=== PATIENT | male | born 1980 | race Two or more races ===

== ENCOUNTER 2019-01-29 13:25 | Emergency (ER) | payer SELFPAY ==
--- NOTE | 2019-01-29 13:43 | EDM.PDOC ---
ED HPI GENERAL MEDICAL PROBLEM - General Chief Complaint: Upper Extremity Injury/Pain Stated Complaint: BRUISING ON ARM Time Seen by Provider: 01/29/19 13:43 Source of Information: Reports: Patient History Limitations: Reports: No Limitations - History of Present Illness INITIAL COMMENTS - FREE TEXT/NARRATIVE: HISTORY AND PHYSICAL: History of present illness: Patient is a 38-year-old male presents to the ED with concern of left arm bruising. Patient states 2 days he hit his right elbow. He developed swelling and bruising. He states the swelling has gone down but has bruising down his forearm. Denies fevers, chills, distal pain/numbness/tingling. Review of systems: As per history of present illness and below otherwise all systems reviewed and negative. Past medical history: As per history of present illness and as reviewed below otherwise noncontributory. Surgical history: As per history of present illness and as reviewed below otherwise noncontributory. Social history: No reported history of drug or alcohol abuse. Family history: As per history of present illness and as reviewed below otherwise noncontributory. Physical exam: General: Patient sitting comfortably in no acute distress and nontoxic appearing HEENT: Atraumatic, normocephalic, pupils reactive, negative for conjunctival pallor or scleral icterus, mucous membranes moist, throat clear, neck supple, nontender, trachea midline. No meningeal signs. Lungs: Clear to auscultation, breath sounds equal bilaterally, chest nontender. Heart: S1S2, regular, negative for clicks, rubs, or overt murmur. Abdomen: Soft, nondistended, nontender. Negative for masses or hepatosplenomegaly. Negative for costovertebral tenderness. No rigidity, rebound , guarding. Pelvis: Stable nontender. Genitourinary: Deferred. Rectal: Deferred. Extremities: Ecchymosis to the left posterior elbow and the medial and anterior aspect of the left forearm. Atraumatic, negative for cords or calf pain. Neurovascular unremarkable. Neuro: Awake, alert, oriented. Cranial nerves II through XII unremarkable. Cerebellum unremarkable. Motor and sensory unremarkable throughout. Exam nonfocal. Notes: Diagnostics: [] Therapeutics: [] Prescriptions: Impression: [] Plan: [] Definitive disposition and diagnosis as appropriate pending reevaluation and review of above. L forearm Pain Score (Numeric/FACES): 6 - Related Data Allergies Allergy/AdvReac Type Severity Reaction Status Date / Time No Known Allergies Allergy Verified 01/29/19 13:41 Home Meds: Home Meds . [No Known Home Meds] 01/29/19 [History] Course - Vital Signs Last Recorded V/S: Last Vital Signs Temp 98.5 F 01/29/19 13:38 Pulse 110 H 01/29/19 13:38 Resp 18 01/29/19 13:38 BP 165/94 H 01/29/19 13:38 Pulse Ox 99 01/29/19 13:38 Departure - Departure Time of Disposition: 14:20 Disposition: Home, Self-Care 01 Condition: Good Clinical Impression: Injury of left elbow - Discharge Information Referrals: PCP,None [Primary Care Provider] - Forms: ED Department Discharge Additional Instructions: The following information is given to patients seen in the emergency department who are being discharged to home. This information is to outline your options for follow-up care. We provide all patients seen in our emergency department with a follow-up referral. The need for follow-up, as well as the timing and circumstances, are variable depending upon the specifics of your emergency department visit. If you don't have a primary care physician on staff, we will provide you with a referral. We always advise you to contact your personal physician following an emergency department visit to inform them of the circumstance of the visit and for follow-up with them and/or the need for any referrals to a consulting specialist. The emergency department will also refer you to a specialist when appropriate. This referral assures that you have the opportunity for follow-up care with a specialist. All of these measure are taken in an effort to provide you with optimal care, which includes your follow-up. Under all circumstances we always encourage you to contact your private physician who remains a resource for coordinating your care. When calling for follow-up care, please make the office aware that this follow-up is from your recent emergency room visit. If for any reason you are refused follow-up, please contact the [facility] Emergency Department at and asked to speak to the emergency department charge nurse. [facility] [address] [place] [id number] [facility] [address] [place] [address] Ice, elevate and motrin or tylenol as needed Follow up with primary care provider Return to ED as needed as discussed Sepsis Event Note - Evaluation Sepsis Screening Result: No Definite Risk - Focused Exam Vital Signs: Vital Signs Temp Pulse Resp BP Pulse Ox 01/29/19 13:38 98.5 F 110 H 18 165/94 H 99 Date Exam was Performed: 01/29/19 Time Exam was Performed: 14:20
--- NOTE | 2019-01-29 14:16 | CR ---
INDICATION: Injury. FINDINGS: Three views of the left elbow were obtained. There is no acute fracture seen or dislocation. There is no posterior fat pad sign seen. IMPRESSION: No acute bone abnormality. Dictated by Andrey Campbell MD @ 01/29/2019 2:14:51 PM Dictated by: Andrey Campbell MD @ 01/29/2019 14:14:58 (Electronically Signed)
== END 2019-01-29 14:30 | disposition home or self-care (01) ==
LOC: MW.ED 13:25
DX: S50.02XA Contusion of left elbow, initial encounter (principal); S50.12XA Contusion of left forearm, initial encounter; W22.8XXA Striking against or struck by other objects, initial encounter; Y99.0 Civilian activity done for income or pay
CPT/HCPCS: 73080-26-LT; 73080-LT; 99282; 99283-25

== ENCOUNTER 2019-05-17 11:39 | Emergency (ER) | payer SELFPAY ==
--- NOTE | 2019-05-17 12:08 | EDM.PDOCBH ---
ED [facility] GENERAL MEDICAL PROBLEM - General Chief Complaint: Behavioral/Psych Stated Complaint: PANIC ATTACK Time Seen by Provider: 05/17/19 12:06 Source of Information: Reports: Patient History Limitations: Reports: No Limitations - History of Present Illness INITIAL COMMENTS - FREE TEXT/NARRATIVE: Patient 39-year-old male past medical history of anxiety presenting with a chief complaint of panic attack. Patient states that the symptoms have been ongoing since yesterday. Symptoms worsened today while at work. Patient states he has a history of panic attacks in the past but does not have one for 2 years. Patient states he was prescribed Xanax in the past. Patient states that he had significant stressors in his life with his mother being diagnosed with cancer and having surgery yesterday. Patient denies any chest pain, shortness of breath, palpitations. Patient denies any drug or alcohol use. Patient is denying suicidal, homicidal ideations. Pmhx: Anxiety disorder Pshx: None Family Hx: noncontributory Smoking history? no Etoh use? none Drug use? none In addition to that documented in the HPI above, the additional ROS was obtained : Constitutional: Denies fevers or chills Eyes: Denies vision changes ENMT: Denies sore throat CV: Denies chest pain Resp: Denies SOB GI: Denies vomiting or diarrhea : Denies painful urination MSK: Denies recent trauma Skin: Denies new rashes Neuro: Denies new numbness or tingling or weakness Endocrine: Denies unexpected weight loss Heme: Denies bleeding disorders I have reviewed the triage vital signs Const: Well nourished, well developed, appears stated age Eyes: PERRL, no conjunctival injection HENT: NCAT, Neck supple without meningismus CV: RRR, Warm, well-perfused extremities RESP: Unlabored respiratory effort GI: soft, non-tender, non-distended, no masses MSK: No gross deformities appreciated Skin: Warm, dry. 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 Sensation and motor function of extremities grossly intact. Psych: Anxious in appearance with appropriate mood and affect Assessment and plan: Patient is 39-year-old male presenting with chief complaint of panic attack. Patient's vital signs do not demonstrate any significant abnormalities requiring intervention. Patient's EKG demonstrated normal sinus rhythm without ischemic changes. Patient has history of anxiety and does not take medications. There is no evidence of alcohol withdrawal, ACS. Signs and symptoms are more consistent with panic disorder. Patient given 1 dose of Valium in the emergency department. Patient instructed to follow-up as an outpatient for further management. Patient given return precautions. All questions addressed and answered. Patient agrees with plan. - Related Data Allergies Allergy/AdvReac Type Severity Reaction Status Date / Time No Known Allergies Allergy Verified 05/17/19 11:41 Home Meds: Home Meds . [No Known Home Meds] 01/29/19 [History] Past Medical History HEENT History: Reports: None Cardiovascular History: Reports: None Respiratory History: Reports: None Gastrointestinal History: Reports: None Genitourinary History: Reports: None Musculoskeletal History: Reports: None Neurological History: Reports: None Psychiatric History: Reports: None Endocrine/Metabolic History: Reports: None Hematologic History: Reports: None Immunologic History: Reports: None Oncologic (Cancer) History: Reports: None Dermatologic History: Reports: None - Infectious Disease History Infectious Disease History: Reports: None - Past Surgical History Head Surgeries/Procedures: Reports: None HEENT Surgical History: Reports: None Cardiovascular Surgical History: Reports: None Respiratory Surgical History: Reports: None GI Surgical History: Reports: Hernia, Abdominal Male Surgical History: Reports: None Endocrine Surgical History: Reports: None Neurological Surgical History: Reports: None Musculoskeletal Surgical History: Reports: None Oncologic Surgical History: Reports: None Dermatological Surgical History: Reports: None Social & Family History - Family History Family Medical History: Noncontributory - Tobacco Use Smoking Status *Q: Never Smoker Second Hand Smoke Exposure: No - Caffeine Use Caffeine Use: Reports: None - Recreational Drug Use Recreational Drug Use: No ED ROS GENERAL - Review of Systems Review Of Systems: See Below ED EXAM, BEHAVIORAL HEALTH - Physical Exam Exam: See Below COURSE, BEHAVIORAL HEALTH COMP - Course Vital Signs: Last Vital Signs Temp 36.5 C 05/17/19 12:35 Pulse 92 05/17/19 12:35 Resp 18 05/17/19 12:35 BP 131/87 05/17/19 12:35 Pulse Ox 100 05/17/19 12:35 Orders, Labs, Meds: Active Orders 24 hr Category Date Time Status EKG Documentation Completion [RC] STAT Care 05/17/19 12:04 Active Medications Discontinued Medications Generic Name Dose Route Start Last Admin Trade Name Freq PRN Reason Stop Dose Admin Diazepam 5 mg 04/11/20 12:18 05/17/19 12:34 Valium. PO 05/17/19 12:19 5 mg ONETIME ONE Administration Departure - Departure Time of Disposition: 12:42 Disposition: Home, Self-Care 01 Clinical Impression: Panic disorder - Discharge Information Instructions: Living With Anxiety Referrals: PCP,None [Primary Care Provider] - Forms: ED Department Discharge Additional Instructions: The following information is given to patients seen in the emergency department who are being discharged to home. This information is to outline your options for follow-up care. We provide all patients seen in our emergency department with a follow-up referral. The need for follow-up, as well as the timing and circumstances, are variable depending upon the specifics of your emergency department visit. If you don't have a primary care physician on staff, we will provide you with a referral. We always advise you to contact your personal physician following an emergency department visit to inform them of the circumstance of the visit and for follow-up with them and/or the need for any referrals to a consulting specialist. The emergency department will also refer you to a specialist when appropriate. This referral assures that you have the opportunity for follow-up care with a specialist. All of these measure are taken in an effort to provide you with optimal care, which includes your follow-up. Under all circumstances we always encourage you to contact your private physician who remains a resource for coordinating your care. When calling for follow-up care, please make the office aware that this follow-up is from your recent emergency room visit. If for any reason you are refused follow-up, please contact the [facility] Emergency Department at and asked to speak to the emergency department charge nurse. Sepsis Event Note - Evaluation Sepsis Screening Result: No Definite Risk - Focused Exam Vital Signs: Vital Signs Temp Pulse Resp BP Pulse Ox 05/17/19 12:35 36.5 C 92 18 131/87 100 05/17/19 11:41 36.0 C L 96 18 154/100 H 98 Date Exam was Performed: 05/17/19 Time Exam was Performed: 12:42 - My Orders Last 24 Hours: My Active Orders 05/17/19 12:04 EKG Documentation Completion [RC] STAT - Assessment/Plan Last 24 Hours: My Active Orders 05/17/19 12:04 EKG Documentation Completion [RC] STAT
[2019-05-17] MEDS: Diazepam 5 MG Tab PO ONE (12:34)
== END 2019-05-17 12:49 | disposition home or self-care (01) ==
LOC: MW.ED 11:39
DX: F41.0 Panic disorder [episodic paroxysmal anxiety] (principal)
CPT/HCPCS: 93005; 99283; A9270

== ENCOUNTER 2019-08-08 23:35 | Emergency (ER) | payer BC ==
[2019-08-08] MEDS ORDERED: Ondansetron 4 MG/2 ML SDV IVPUSH ONE (23:59)
[2019-08-08] MEDS ORDERED: Sodium Chloride 0.9% 10 ML Syringe FLUSH PRN (23:59)
[2019-08-08] MEDS ORDERED: Sodium Chloride 0.9% 2.5 ML Syringe FLUSH PRN (23:59)
[2019-08-09] MEDS ORDERED: Metoclopramide 10 MG/2 ML SDV IVPUSH ONE (00:30)
[2019-08-09 00:35] LABS: BLOOD UREA NITROGEN,BUN 18 mg/dL (7.0-18.0); CARBON DIOXIDE,CO2 27.4 mmol/L (21.0-32.0); CHLORIDE,CL 102 mmol/L (98-107); GLUCOSE RANDOM 111 mg/dL (74-106); LIPASE 112 U/L (73-393); POTASSIUM,K 3.8 mmol/L (3.5-5.1); SODIUM,NA 140 mmol/L (136-148)
--- NOTE | 2019-08-09 00:51 | EDM.PDOC ---
ED HPI GENERAL MEDICAL PROBLEM - General Chief Complaint: Gastrointestinal Problem Stated Complaint: VOMITTING,NAUSEA Time Seen by Provider: 08/08/19 23:36 Source of Information: Reports: Patient, Old Records History Limitations: Reports: No Limitations - History of Present Illness INITIAL COMMENTS - FREE TEXT/NARRATIVE: 39-year-old male with no pertinent past medical history presenting with nausea and vomiting. Around 8:30 PM, the patient began experiencing abdominal cramping, nausea, and nonbloody emesis x5 after eating fish that he was concerned was undercooked. No report of any fever, hematemesis, diarrhea, or bloody stools. No one else at home is sick with GI symptoms. Denies any dysuria or urinary frequency. No self treatment prior to arrival, no other complaints. - Related Data Allergies Allergy/AdvReac Type Severity Reaction Status Date / Time No Known Allergies Allergy Verified 08/08/19 23:52 Home Meds: Home Meds LORazepam [Ativan] 0.5 mg PO ASDIRECTED PRN 08/08/19 [History] Past Medical History - Past Health History Medical/Surgical History: Denies Medical/Surgical History HEENT History: Reports: None Cardiovascular History: Reports: None Respiratory History: Reports: None Gastrointestinal History: Reports: None Genitourinary History: Reports: None Musculoskeletal History: Reports: None Neurological History: Reports: None Psychiatric History: Reports: Anxiety Endocrine/Metabolic History: Reports: None Hematologic History: Reports: None Immunologic History: Reports: None Oncologic (Cancer) History: Reports: None Dermatologic History: Reports: None - Infectious Disease History Infectious Disease History: Reports: None - Past Surgical History Head Surgeries/Procedures: Reports: None HEENT Surgical History: Reports: None Cardiovascular Surgical History: Reports: None Respiratory Surgical History: Reports: None GI Surgical History: Reports: Hernia, Abdominal Male Surgical History: Reports: None Endocrine Surgical History: Reports: None Neurological Surgical History: Reports: None Musculoskeletal Surgical History: Reports: None Oncologic Surgical History: Reports: None Dermatological Surgical History: Reports: None Social & Family History - Family History Family Medical History: Noncontributory - Tobacco Use Smoking Status *Q: Never Smoker Second Hand Smoke Exposure: No - Caffeine Use Caffeine Use: Reports: Coffee - Recreational Drug Use Recreational Drug Use: No ED ROS GENERAL - Review of Systems Review Of Systems: See Below Constitutional: Denies: Fever, Chills HEENT: Reports: No Symptoms Respiratory: Denies: Shortness of Breath Cardiovascular: Denies: Chest Pain Endocrine: Reports: No Symptoms GI/Abdominal: Reports: Abdominal Pain, Nausea, Vomiting. Denies: Black Stool, Bloody Stool, Diarrhea, Distension, Hematemesis, Hematochezia : Denies: Dysuria, Hematuria Musculoskeletal: Denies: Neck Pain, Back Pain Skin: Denies: Rash, Lesions Neurological: Denies: Headache ED EXAM, GI/ABD - Physical Exam Exam: See Below Text/Narrative:: Vital signs reviewed. Nursing notes reviewed. Constitutional: Awake, alert, actively vomiting. Head: Normocephalic, atraumatic. Eyes: EOMI, conjunctiva normal, no discharge, no scleral icterus. Ears, Nose, Throat: External ears and nose normal, moist oral mucosa. Cardiovascular: 2+ radial pulse, capillary refill less than 2 seconds. Pulmonary: normal work of breathing, no accessory muscle use. Abdomen/GI: Soft, nontender, nondistended, no guarding or rigidity, no masses. Musculoskeletal: No deformities. Integumentary: Appropriate color for ethnicity, warm, dry, no pallor or jaundice, no rash. Neurologic: Alert, answering questions appropriately, normal speech, no facial droop, moving all extremities well. Psychiatric: Appropriate mood and affect, normal thought process. Course - Vital Signs Text/Narrative:: Patient hemodynamically stable, afebrile, well-appearing, looks nontoxic. Differential diagnosis includes but is not limited to: Gastritis, viral gastroenteritis, appendicitis, bowel obstruction, ileus, intra-abdominal infection, acute cholecystitis, pancreatitis, peptic ulcer disease, biliary colic, kidney stone, UTI, pyelonephritis, etc. CBC shows mild anemia. Electrolytes look okay. Normal lipase, LFTs show mildly elevated AST. No chest pain or shortness of breath. Improved after IV Zofran and Reglan. Tolerating p.o. intake after these therapies. No longer having nausea, abdominal cramping totally resolved, no pain after being treated with medications. Given symptomatic improvement in total symptom resolution, did not feel that imaging studies were warranted at this point. Vitally stable. Well-appearing. Tolerating fluid intakes without difficulty. Low suspicion for intra-abdominal infection given that pain totally resolved, no fever, no focal tenderness. No GI bleeding. No urinary symptoms. No abdominal distention. Plan to discharge home with a prescription for Zofran, recommended plenty of p.o. fluids and primary care follow-up as needed. Plan: Patient is stable to discharge home with outpatient primary care follow- up. Strict emergency department return precautions were provided, patient indicated understanding. All questions were answered prior to departure. Discharged in good condition. Last Recorded V/S: Last Vital Signs Temp 36.7 C 08/08/19 23:50 Pulse 79 08/09/19 02:35 Resp 16 08/09/19 02:35 BP 126/80 08/09/19 02:35 Pulse Ox 97 08/09/19 02:35 - Orders/Labs/Meds Orders: Active Orders 24 hr Category Date Time Status Pulse Oximetry [RC] ASDIRECTED Care 08/08/19 23:59 Active Saline Lock Insert [OM.PC] Stat Oth 08/08/19 23:59 Ordered Labs: Laboratory Tests 08/09/19 08/09/19 Range/Units 00:10 00:10 WBC 7.86 (4.0-11.0) K/uL RBC 4.27 L (4.50-5.90) M/uL Hgb 12.9 L (13.0-17.0) g/dL Hct 37.5 L (38.0-50.0) % MCV 87.8 (80.0-98.0) fL MCH 30.2 (27.0-32.0) pg MCHC 34.4 (31.0-37.0) g/dL RDW Std Deviation 38.9 (28.0-62.0) fl RDW Coeff of Ramesh 12 (11.0-15.0) % Plt Count 231 (150-400) K/uL MPV 10.80 (7.40-12.00) fL Neut % (Auto) 57.7 (48.0-80.0) % Lymph % (Auto) 32.2 (16.0-40.0) % Nicollet % (Auto) 8.4 (0.0-15.0) % Eos % (Auto) 1.4 (0.0-7.0) % Baso % (Auto) 0.3 (0.0-1.5) % Neut # (Auto) 4.5 (1.4-5.7) K/uL Lymph # (Auto) 2.5 H (0.6-2.4) K/uL Nicollet # (Auto) 0.7 (0.0-0.8) K/uL Eos # (Auto) 0.1 (0.0-0.7) K/uL Baso # (Auto) 0.0 (0.0-0.1) K/uL Sodium 140 (136-148) mmol/L Potassium 3.8 (3.5-5.1) mmol/L Chloride 102 (98-107) mmol/L Carbon Dioxide 27.4 (21.0-32.0) mmol/L BUN 18 (7.0-18.0) mg/dL Creatinine 0.9 (0.8-1.3) mg/dL Est Cr Clr Drug Dosing 112.65 mL/min Estimated GFR (MDRD) > 60.0 ml/min Glucose 111 H (74-106) mg/dL Calcium 8.9 (8.5-10.1) mg/dL Total Bilirubin 0.7 (0.2-1.0) mg/dL AST 43 H (15-37) IU/L ALT 55 (14-63) IU/L Alkaline Phosphatase 53 (46-116) U/L Total Protein 7.6 (6.4-8.2) g/dL Albumin 4.2 (3.4-5.0) g/dL Globulin 3.4 (2.6-4.0) g/dL Albumin/Globulin Ratio 1.2 (0.9-1.6) Lipase 112 (73-393) U/L Meds: Medications Discontinued Medications Generic Name Dose Route Start Last Admin Trade Name Freq PRN Reason Stop Dose Admin Metoclopramide HCl 10 mg 08/09/19 00:30 08/09/19 00:34 Reglan IVPUSH 08/09/19 00:31 10 mg ONETIME ONE Administration Ondansetron HCl 4 mg 08/08/19 23:59 08/09/19 00:10 Zofran IVPUSH 08/09/19 00:00 4 mg ONETIME ONE Administration Sodium Chloride 10 ml 08/08/19 23:59 Saline Flush FLUSH ASDIRECTED PRN Keep Vein Open Sodium Chloride 2.5 ml 08/08/19 23:59 Saline Flush FLUSH ASDIRECTED PRN Keep Vein Open Departure - Departure Time of Disposition: 02:21 Disposition: Home, Self-Care 01 Condition: Good Clinical Impression: Nausea and vomiting Qualifiers: Vomiting type: unspecified Vomiting Intractability: non-intractable Qualified Code(s): R11.2 - Nausea with vomiting, unspecified - Discharge Information *PRESCRIPTION DRUG MONITORING PROGRAM REVIEWED*: Not Applicable *COPY OF PRESCRIPTION DRUG MONITORING REPORT IN PATIENT SHANNAN: Not Applicable Instructions: Nausea and Vomiting, Adult Referrals: [facility] - Family Practice [Provider Group] - 1 Week (As needed for follow-up of symptoms.) Forms: ED Department Discharge Additional Instructions: Thank you for choosing the [facility] emergency department in [place] for your medical needs today. It was a pleasure caring for you. You were seen in the emergency department for nausea, vomiting, and abdominal cramping. It is possible that your symptoms are due to undercooked food. I am glad you are feeling better after receiving some medications. Your blood work looks okay. We are going to prescribe some Zofran for nausea, take it as needed. Be sure you are drinking plenty of fluids. You should follow-up with a primary medical doctor in the next few days if you are not feeling much better. Please return the emergency department immediately if your symptoms worsen or if you feel worse. The following information is given to patients seen in the emergency department who are being discharged. This information is to outline your options for follow-up care. We provide all patients seen in our emergency department with a follow-up referral. The need for follow-up, as well as the timing and circumstances, are variable depending upon the specifics of your emergency department visit. If you don't have a primary care physician on staff, we will provide you with a referral. We always advise you to contact your personal physician following an emergency department visit to inform them of the circumstance of the visit and for follow-up with them and/or the need for any referrals to a consulting specialist. The emergency department will also refer you to a specialist when appropriate. This referral assures that you have the opportunity for follow-up care with a specialist. All of these measure are taken in an effort to provide you with optimal care, which includes your follow-up. Under all circumstances we always encourage you to contact your private physician who remains a resource for coordinating your care. When calling for follow-up care, please make the office aware that this follow-up is from your recent emergency room visit. If for any reason you are refused follow-up, please contact the Emergency Department at and asked to speak to the emergency department charge nurse. If you do not have a primary care physician that is caring for you, you can contact these clinics below to set up an appointment to establish care: [facility] - Primary Care [address] [place] [id number] [facility] [address] [place] [id number] Sepsis Event Note (ED) - Evaluation Sepsis Screening Result: No Definite Risk - Focused Exam Vital Signs: Vital Signs Temp Pulse Resp BP Pulse Ox 08/09/19 02:35 79 16 126/80 97 08/08/19 23:50 36.7 C 78 20 129/85 99 - My Orders Last 24 Hours: My Active Orders 08/08/19 23:59 Pulse Oximetry [RC] ASDIRECTED Saline Lock Insert [OM.PC] Stat - Assessment/Plan Last 24 Hours: My Active Orders 08/08/19 23:59 Pulse Oximetry [RC] ASDIRECTED Saline Lock Insert [OM.PC] Stat
== END 2019-08-09 02:34 | disposition home or self-care (01) ==
LOC: MW.ED 23:35
DX: R11.2 Nausea with vomiting, unspecified (principal)
CPT/HCPCS: 36415; 80053; 83690; 85025; 96374; 96375; 99284; J2405; J2765; 99283

== ENCOUNTER 2019-08-26 00:52 | Emergency (ER) | payer BC ==
[2019-08-26] MEDS ORDERED: Ondansetron 4 MG Tab PO ONE (01:53)
--- NOTE | 2019-08-26 01:56 | EDM.PDOC ---
ED HPI GENERAL MEDICAL PROBLEM - General Chief Complaint: Gastrointestinal Problem Stated Complaint: ANXIETY, NAUSEA, DIARRHEA Time Seen by Provider: 08/26/19 01:00 - History of Present Illness INITIAL COMMENTS - FREE TEXT/NARRATIVE: History of present illness: [] Patient presents with nausea vomiting and diarrhea that began after taking Zoloft he is prescribed Zoloft recently for anxiety and he states every time he takes it it makes his anxiety worse and he develops the nausea vomiting diarrhea he denies any abdominal pain no fever no chills nothing seems to make it better or worse. Talk to the prescribing physician about this. Review of systems: As per history of present illness and below otherwise all systems reviewed and negative. Past medical history: As per history of present illness and as reviewed below otherwise noncontributory. Surgical history: As per history of present illness and as reviewed below otherwise noncontributory. Social history: No reported history of drug or alcohol abuse. Family history: As per history of present illness and as reviewed below otherwise noncontributory. Physical exam: HEENT: Atraumatic, normocephalic, pupils reactive, negative for conjunctival pallor or scleral icterus, mucous membranes moist, throat clear, neck supple, nontender, trachea midline. Lungs: Clear to auscultation, breath sounds equal bilaterally, chest nontender. Heart: S1S2, regular, negative for clicks, rubs, or JVD. Abdomen: Soft, nondistended, nontender. Negative for masses or hepatosplenomegaly. Negative for costovertebral tenderness. Pelvis: Stable nontender. Genitourinary: Deferred. Rectal: Deferred. Extremities: Atraumatic, negative for cords or calf pain. Neurovascular unremarkable. Neuro: Awake, alert, oriented. Cranial nerves II through XII unremarkable. Cerebellum unremarkable. Motor and sensory unremarkable throughout. Exam nonfocal. Diagnostics: [] Therapeutics: [] Impression: Medication intolerance [] Plan: Zofran p.o. challenge reassess [] Definitive disposition and diagnosis as appropriate pending reevaluation and review of above. no pain Pain Score (Numeric/FACES): 0 - Related Data Allergies Allergy/AdvReac Type Severity Reaction Status Date / Time No Known Allergies Allergy Verified 08/08/19 23:52 Home Meds: Home Meds Sertraline [Zoloft] 0 mg 08/26/19 [History] Past Medical History - Past Health History Medical/Surgical History: Denies Medical/Surgical History HEENT History: Reports: None Cardiovascular History: Reports: None Respiratory History: Reports: None Gastrointestinal History: Reports: None Genitourinary History: Reports: None Musculoskeletal History: Reports: None Neurological History: Reports: None Psychiatric History: Reports: Anxiety Endocrine/Metabolic History: Reports: None Hematologic History: Reports: None Immunologic History: Reports: None Oncologic (Cancer) History: Reports: None Dermatologic History: Reports: None - Infectious Disease History Infectious Disease History: Reports: None - Past Surgical History Head Surgeries/Procedures: Reports: None HEENT Surgical History: Reports: None Cardiovascular Surgical History: Reports: None Respiratory Surgical History: Reports: None GI Surgical History: Reports: Hernia, Abdominal Male Surgical History: Reports: None Endocrine Surgical History: Reports: None Neurological Surgical History: Reports: None Musculoskeletal Surgical History: Reports: None Oncologic Surgical History: Reports: None Dermatological Surgical History: Reports: None Social & Family History - Family History Family Medical History: Noncontributory - Tobacco Use Smoking Status *Q: Never Smoker - Caffeine Use Caffeine Use: Reports: Coffee - Recreational Drug Use Recreational Drug Use: No ED ROS GENERAL - Review of Systems Review Of Systems: See Below ED EXAM, GENERAL - Physical Exam Exam: See Below Course - Vital Signs Text/Narrative:: Patient was reassessed at 3 AM he states the nausea is gone he is still somewhat anxious he was given some Benadryl he is encouraged to follow-up with a primary care doctor who is prescribing his anxiety medication. Last Recorded V/S: Last Vital Signs Temp 35.8 C L 08/26/19 01:28 Pulse 97 08/26/19 02:42 Resp 14 08/26/19 02:42 BP 142/81 H 08/26/19 02:42 Pulse Ox 98 08/26/19 02:42 - Orders/Labs/Meds Meds: Medications Discontinued Medications Generic Name Dose Route Start Last Admin Trade Name Ayad PRN Reason Stop Dose Admin Diphenhydramine HCl 50 mg 08/26/19 02:37 08/26/19 02:42 Benadryl PO 08/26/19 02:38 50 mg ONETIME ONE Administration Ondansetron HCl 4 mg 08/26/19 01:53 08/26/19 02:04 Zofran PO 08/26/19 01:54 4 mg ONETIME ONE Administration Departure - Departure Time of Disposition: 03:01 Disposition: Home, Self-Care 01 Condition: Good Clinical Impression: Anxiety, Medication reaction - Discharge Information *PRESCRIPTION DRUG MONITORING PROGRAM REVIEWED*: Not Applicable *COPY OF PRESCRIPTION DRUG MONITORING REPORT IN PATIENT [facility]ANNA[facility]: Not Applicable Instructions: Nausea and Vomiting, Adult, [place], Living With Anxiety Referrals: PCP,None [Primary Care Provider] - Forms: ED Department Discharge Additional Instructions: The following information is given to patients seen in the emergency department who are being discharged to home. This information is to outline your options for follow-up care. We provide all patients seen in our emergency department with a follow-up referral. The need for follow-up, as well as the timing and circumstances, are variable depending upon the specifics of your emergency department visit. If you don't have a primary care physician on staff, we will provide you with a referral. We always advise you to contact your personal physician following an emergency department visit to inform them of the circumstance of the visit and for follow-up with them and/or the need for any referrals to a consulting specialist. The emergency department will also refer you to a specialist when appropriate. This referral assures that you have the opportunity for follow-up care with a specialist. All of these measure are taken in an effort to provide you with optimal care, which includes your follow-up. Under all circumstances we always encourage you to contact your private physician who remains a resource for coordinating your care. When calling for follow-up care, please make the office aware that this follow-up is from your recent emergency room visit. If for any reason you are refused follow-up, please contact the [facility] Emergency Department at and asked to speak to the emergency department charge nurse. Sepsis Event Note (ED) - Evaluation Sepsis Screening Result: No Definite Risk - Focused Exam Vital Signs: Vital Signs Temp Pulse Resp BP Pulse Ox 08/26/19 02:42 97 14 142/81 H 98 08/26/19 02:05 75 18 137/91 H 98 08/26/19 01:28 35.8 C L 85 18 160/99 H 97
[2019-08-26] MEDS ORDERED: diphenhydrAMINE 50 MG Cap PO ONE (02:37)
== END 2019-08-26 03:21 | disposition home or self-care (01) ==
LOC: MW.ED 00:52
DX: F41.9 Anxiety disorder, unspecified (principal); T43.225A Adverse effect of selective serotonin reuptake inhibitors, initial encounter
CPT/HCPCS: 99282; 99283; A9270-GY

== ENCOUNTER 2021-07-30 04:23 | Emergency (ER) | payer BC ==
[2021-07-30] MEDS ORDERED: Albuterol 8 GM Inhaler INH STA (04:49)
[2021-07-30] MEDS ORDERED: ALPRAZolam 0.5 MG Tab PO ONE (04:52)
== END 2021-07-30 05:35 | disposition home or self-care (01) ==
LOC: MW.ED 04:23
DX: U07.1 COVID-19 (principal)
CPT/HCPCS: 71045; 87635; 93005; 99285; A9270; 93010; 99283; U0002

== ENCOUNTER 2023-02-24 06:14 | Emergency (ER) | payer SELFPAY ==
[2023-02-24] MEDS ORDERED: Sodium Chloride 0.9% 2.5 ML Syringe FLUSH PRN (06:39)
[2023-02-24] MEDS ORDERED: Sodium Chloride 0.9% 10 ML Syringe FLUSH PRN (06:39)
[2023-02-24] MEDS ORDERED: Albuterol/Ipratropium 3.0-0.5 MG/3 ML Neb Soln NEB ONE (06:39)
[2023-02-24] MEDS ORDERED: Sodium Chloride 0.9% 1,000 ML IV ONE (06:42)
[2023-02-24] MEDS ORDERED: Ondansetron 4 MG/2 ML SDV IVPUSH ONE (07:16)
[2023-02-24] MEDS ORDERED: Ketorolac 30 MG/ML SDV IVPUSH ONE (07:16)
[2023-02-24 07:22] LABS: BASOPHILS ABSOLUTE AUTO 0.02 K/uL (0.00-0.20); BASOPHILS PERCENT AUTO 0.4 % (0.0-1.0); EOSINOPHILS ABSOLUTE AUTO 0.01 K/uL (0.00-0.45); EOSINOPHILS PERCENT AUTO 0.2 % (0.0-6.0); HEMATOCRIT 37.6 % (42.0-52.0); HEMOGLOBIN 12.9 g/dL (14.0-18.0); IMMATURE GRAN ABSOLUTE AUTO 0.01 K/uL (0.00-0.05); IMMATURE GRAN PERCENT AUTO 0.2 % (0.0-0.4); LYMPHOCYTES ABSOLUTE AUTO 0.92 K/uL (1.00-4.80); LYMPHOCYTES PERCENT AUTO 18.3 % (24.0-44.0); MEAN CORPUSCULAR HEMOGLOBIN 31.6 pg (28.0-32.0); MEAN CORPUSCULAR HGB CONC 34.3 g/dL (32.0-36.0); MEAN CORPUSCULAR VOLUME 92.2 fL (83.0-99.0); MEAN PLATELET VOLUME 10.3 fL (9.4-12.4); MONOCYTES ABSOLUTE AUTO 0.58 K/uL (0.00-0.80); MONOCYTES PERCENT AUTO 11.6 % (0.0-8.0); NEUTROPHILS ABSOLUTE AUTO 3.48 K/uL (1.80-7.70); NEUTROPHILS PERCENT AUTO 69.3 % (41.0-71.0); PLATELET COUNT,PLT 169 K/uL (150-400); RED BLOOD CELL COUNT 4.08 M/uL (4.52-5.90); WHITE BLOOD CELL COUNT,WBC 5.02 K/uL (3.9-11.3)
[2023-02-24 07:23] LABS: CORONAVIRUS COVID-19 NAA NEGATIVE (NEGATIVE); INFLUENZA A NAA NEGATIVE (NEGATIVE); INFLUENZA B NAA POSITIVE (NEGATIVE)
[2023-02-24 07:57] LABS: CALCIUM 8.7 mg/dL (8.5-10.1); CARBON DIOXIDE,CO2 27.8 mmol/L (21.0-32.0); CREATININE 0.8 mg/dL (0.8-1.3); EST CRCL DRUG DOSING (CG) 121.67 mL/min; POTASSIUM,K 3.3 mmol/L (3.5-5.1)
== END 2023-02-24 08:16 | disposition home or self-care (01) ==
LOC: MW.ED 06:14
DX: J10.1 Influenza due to other identified influenza virus with other respiratory manifestations (principal)
CPT/HCPCS: 0240U; 36415; 71046; 80048; 84484; 85025; 93005; 96374; 96375; 99285; J1885; J2405; J7030; 93010; 99284; J7620-GY